=== PATIENT | female | born 1985 | race Caucasian/White ===

== ENCOUNTER → 2016-06-03 | Outpatient (CLI) | payer MEDICAID | LOC: RAD 13:21 | PROVIDERS: ATTEND Family Medicine | DX: O26.843 Uterine size-date discrepancy, third trimester (principal); Z3A.29 29 weeks gestation of pregnancy | CPT/HCPCS: 76805 ==

== ENCOUNTER → 2016-07-18 | Outpatient (CLI) | payer MEDICAID ==
--- NOTE | 2016-07-18 16:13 | Diagnostic Imaging Report ---
INDICATION: Polyhydramnios. EXAMINATION: Multiple real-time grayscale images were obtained through the . AVAILABLE COMPARISONS: 06/03/2016. FINDINGS: A single fetus is identified in cephalic presentation. Placenta is anterior with no previa. anatomic survey was negative. biometrics: BPD: 8.96 cm, 36 weeks 2 days Head circumference: 32 cm, 36 weeks 1 day Abdominal circumference: 32 cm, 6 weeks 1 day Femur length: 6.56 cm, 3 weeks 6 days. Estimated weight: 2694 g +/- 393 g. CHANEL: 32 IMPRESSION: 1. Single live intrauterine with an average ultrasound age of 35 weeks 5 days +/- 3 weeks. size is approximately equal to dates. Interval growth since 06/03/2016 is within normal limits. 2. Amniotic fluid index is greater than the 97th percentile for a gestational age of 35 weeks. Dictated by: Dictated on workstation # [id number]
== END ==
LOC: RAD 14:04
PROVIDERS: ATTEND Family Medicine
DX: O40.3XX0 Polyhydramnios, third trimester, not applicable or unspecified (principal); Z3A.35 35 weeks gestation of pregnancy
CPT/HCPCS: 76805

== ENCOUNTER 2016-08-11 08:32 | Inpatient (IN) | payer MEDICAID ==
[~2016-08-11] VITALS: Ht 157.5 cm; Wt 69.0 kg
[2016-08-11] VITALS (22 sets, daily range): BP systolic 79–111; BP diastolic 44–68
[2016-08-11] MEDS ORDERED: OXYTOCIN INJ 20 UNIT in NS 1000ml 1,000 ML IV PRN (08:58)
[2016-08-11] MEDS ORDERED: CALCIUM CARBONATE CHEWABLE 300 MG (TUMS) TABLET PO PRN (09:00)
[2016-08-11] MEDS ORDERED: SODIUM CHLORIDE FLUSH 3 ML SYR IV SCH (09:35)
[2016-08-11] MEDS ORDERED: PREN1TAB79 PO (09:35)
[2016-08-11 09:42] LABS: MEAN CORPUSCULAR HEMOGLOBIN 31.1 PG (26.0-34.0); MEAN CORPUSCULAR HGB CONC 33.5 g/dL (31.0-37.0); MEAN PLATELET VOLUME 12.3 FL (6.0-9.5); WHITE BLOOD COUNT 11.44 10^3uL (4.0-11.0)
[2016-08-11] MEDS ORDERED: FLC1T PO (09:45)
[2016-08-11] MEDS ORDERED: FERR325C PO (09:45)
[2016-08-11] MEDS ORDERED: OXYTOCIN INJ 20 UNIT in NS 1000ml 1,000 ML SCH (11:35)
[2016-08-11] MEDS ORDERED: OXYTOCIN INJ 20 UNIT in NS 1000ml 1,000 ML IV SCH (12:14)
--- NOTE | 2016-08-11 13:05 | History and Physical (E) ---
History & Physical (OB) Subjective: CC: induction 31 year old at 39 0/7 WGA by LMP confirmed with 1st trimester US presents for induction secondary to polyhydramnios. She is having sporadic contractions, good FM, no LOF and no VB. has been complicated by smoking, chlamydia in the 1st trimester, anemia, and polyhydramnios. She wants a tubal ligation. [facility]: [facility] Hx: x4, EAB x2 PMHx: latex allergy PSHx: FOB Yinka Chen. Unemployed. Smokes 1 ppd, no EtOH or ILD. Allergies: Coded Allergies: latex (Verified Adverse Reaction, Unknown, 08/11/16) Home Medications: Reported Medications Folic Acid 1 Mg Tablet1 Mg PO DAILY 08/11/16 Ferrous Sulfate (Iron)325 Mg Capsule.er325 Mg PO DAILY 08/11/16 Vits W-Ca,Fe,Fa(<1MG) ( Vitamins)1 Each Tablet1 Each PO DAILY 08/11/16 Objective: Vital Signs Date Time Temp Pulse Resp B/P Pulse Ox O2 Delivery O2 Flow Rate FiO2 08/11/16 11:10 70 105/55 08/11/16 09:00 97.8 20 General: Alert and oriented, NAD Chest: CTA Abdomen: Gravid Cardiovasular: RRR, No murmur Extremities: No edema FHT's: 130s, Cat I Cvx: [place]: Q5-10min Screenings: Blood type: O+, Rubella Imm, RPR non-reactive, HBV neg, HIV neg, GBS neg. Problems/Plans: (1) 39 weeks gestation of Assessment & Plan: Plan induction today due to polyhydramnios with AROM. AROM performed with clear fluid returned. Will start pitocin if no good contraction pattern in an hour or so. (2) Polyhydramnios (3) Tobacco use during (4) Latex allergy (5) Request for sterilization Assessment & Plan: Plan tubal ligation. Consent has been signed 05/27. Additional Copies to: End of Report . ДМИТРИЙ MEHTA MD August 11, 2016 09:32
--- NOTE | 2016-08-11 13:07 | Progress Note (E) ---
Progress Note Pitocin at 3, contractions q1-3 min. Cvx 4/80/-2. Patient requesting epidural. Proceed with current management. ДМИТРИЙ LIMON MD August 11, 2016 13:07
[2016-08-11] MEDS ORDERED: ROPIVACAINE 1% 10 MG/ML (NAROPIN) 20 ML AMPUL ONE (13:48)
--- NOTE | 2016-08-11 17:10 | Progress Note (E) ---
Progress Note Epidural placed, pt experience low BPs to the 80s with FHT to the 90s, so it was stopped and slowly restarted. BP is back to baseline, and she is feeling better. FHT 120s until recently, now 90-110s with good variability and no decels. Cvx ant lip/90/+1 Ctx 2-3min. Pit is off. Cont monitoring, hopeful delivery soon. Planning PPTL in the AM. ДМИТРИЙ LIMON MD August 11, 2016 17:09
[2016-08-11] MEDS ORDERED: HYDROcodone/APAP 5 MG/325 MG (NORCO) TAB PO PRN (18:05)
[2016-08-11] MEDS ORDERED: LANOLIN OINTMENT 28 GM TUBE TOP PRN (18:05)
[2016-08-11 18:22] LABS: BILIRUBIN,URINE Negative (Negative); CLARITY,URINE Clear; COLOR,URINE Yellow; GLUCOSE, URINE (UA) Negative (Negative); LEUKOCYTE ESTERASE ,URINE Negative (Negative); UROBILINOGEN,URINE 0.2 mg/dL (0.2-1.0)
[2016-08-11 18:39] LABS: RBC,URINE 20-50 /HPF; URINE CENTRIFUGED VOLUME 12 mL
[2016-08-11] MEDS: IBUPROFEN 600 MG (MOTRIN) TAB PO PRN (20:17)
[2016-08-11] MEDS ORDERED: DOCUSATE SODIUM 100 MG (COLACE) CAP PO SCH (21:00)
[2016-08-12 00:49] VITALS: BP 88/55
[2016-08-12] MEDS: IBUPROFEN 600 MG (MOTRIN) TAB PO PRN ×3 (01:19→18:29)
[2016-08-12] MEDS ORDERED: SODIUM CHLORIDE FLUSH 3 ML SYR ONE (05:46)
[2016-08-12] MEDS ORDERED: SODIUM CHLORIDE FLUSH 10 ML ONE (05:52)
[2016-08-12] MEDS ORDERED: LIDOCAINE PF 1% (XYLOCAINE) 2 ML VIAL INJ ONE ×2 (05:52→08:10)
[2016-08-12 06:02] LABS: MEAN CORPUSCULAR HGB CONC 33.7 g/dL (31.0-37.0); MEAN PLATELET VOLUME 12.2 FL (6.0-9.5); WHITE BLOOD COUNT 14.49 10^3uL (4.0-11.0)
[2016-08-12 06:05] LABS: MEAN CORPUSCULAR HEMOGLOBIN 31.4 PG (26.0-34.0)
[2016-08-12] MEDS ORDERED: BUPIVACAINE/EPINEPHRINE 0.5%-1:200,000 (MARCAINE) 30 ML VIAL INJ ONE (06:12)
[2016-08-12] MEDS ORDERED: MIDAZOLAM 2 MG/2 ML (VERSED) VIAL ONE (07:02)
[2016-08-12] MEDS ORDERED: ePHEDrine SULFATE 50 MG/ML 1 ML AMP ONE (07:08)
[2016-08-12] MEDS ORDERED: ceFAZolin 1000 MG (ANCEF) VIAL ONE (07:16)
[2016-08-12] MEDS ORDERED: WATER (STERILE) FOR INJECTION 20 ML ONE (07:16)
--- NOTE | 2016-08-12 07:53 | Vaginal Delivery Summary (E) ---
Vaginal Delivery Summary At 17:40 on 08/11/16 this 31 year old G7 now P5 spontaneously delivered a viable male at 39 0/7 weeks gestation. The patient presented for care at 8 weeks and ultrasound at that time confirmed dates. This complications: Chlamydia in 1st trimester, Smoker, Anemia, Polyhydramnios Maternal labs: Blood type: O Positive, Rubella Immune, RPR non-reactive, HBV Negative, HIV Negative , GBS Negative. Tdap booster received on 05/2016. She presented for induction secondary to polyhydramnios. At presentation, she was 2.5 cm dilated. At 10:08, AROM was performed by Dr Mehta with Clear fluid returned. Epidural was placed at 1400, with maternal BP drop, so was stopped and restarted more slowly. It the provided good pain relief with the exception of a hot spot on the left lower corner. At 1720, she was complete. She pushed for approximately 10 minutes. The head presented occiput anterior and delivered easily, followed by the anterior shoulder. There was a nuchal cord that was not reduced. The posterior shoulder and the body followed in a controlled fashion and baby was placed on mom's abdomen. The cord was allowed to stop pulsing and then clamped x2 by me and cut by sister of the baby. The placenta then delivered spontaneously and intact, with 3 vessel cord noted. The pitocin bag was run in. There were no lacerations. Estimated blood loss 50 ml. weight: 7 pounds, 5 ounces, 3330 grams. Apgars: 9 at 1 minute, 9 at 5 minutes, and 9 at 10 minutes. Both mom and baby are stable at this time. Plan to proceed with tubal ligation tomorrow morning at 0700. ДМИТРИЙ MEHTA MD August 11, 2016 18:00
--- NOTE | 2016-08-12 08:00 | Operative Report (E FT) ---
Post Operative Note Post Operative Note Operative Note Date of Operation: 08/12/16 Pre-operative Diagnosis: 1. Desire for permanent sterilization 2. Grand multipara 3. Smoker Post Operative Diagnosis: Same Operative Procedure: bilateral tubal ligation Surgeon: Anish Mehta MD Anesthesia: Spinal epidural Findings: Normal uterus, tubes and ovaries Pertinent Preoperative History: Patient delivered a viable male infant yesterday. She does not desire any more children and wants permanent sterilization. The risks and benefits were reviewed , and Medicaid consent signed 04/2016. Operation in Detail: Patient's labor epidural was converted to spinal and brought up in the preoperative room. She was then moved to the operating room and prepped and draped in the usual sterile fashion. Timeout was performed. 20ml of 0.5% Marcaine was instilled along the intended incision site. A curvilinear incision was made below the umbilicus. The incision was taken down to fascia with electrocautery. The abdomen was entered bluntly. The left tube was visualized and elevated with Rian clamp. It was followed to the fimbriae. It was then ligated with 0 Chromic, transected with suture scissors, and then the ends cauterized. It was submitted to pathology. The same was done with the right tube. The fascia was then closed with a running non-locking suture of 0-Vicryl. Count was performed and incorrect, so the suture was removed, and a sponge was removed. Counts were then correct. The fascia was reclosed with 0-Vicryl. The subcutaneous tissue was closed with a running, non-locking suture of 2-0 Vicryl. The skin was then reapproximated with a subcutaneous suture of 4-0 Monocryl. Repeat count was correct. The incision was then dressed with mastisol , steristrip, and bandage. Patient was returned to the postoperative room in a stable condition. ДМИТРИЙ MEHTA MD August 12, 2016 08:00
--- NOTE | 2016-08-12 08:03 | Progress Note (E) ---
Post- Progress Note Subjective: Doing well. Was ambulating and voiding prior to epidural being readministered. Tolerated full diet last night, has been NPO since MN. Bottlefeeding. Objective: Vital Signs Date Time Temp Pulse Resp B/P Pulse Ox O2 Delivery O2 Flow Rate FiO2 08/12/16 00:49 98.0 74 18 88/55 Room air 85 I & O 08/11/16 08/12/16 19:00 07:00 Intake Total 1000 ml Output Total 800 ml Balance 200 ml Laboratory Tests 08/11/16 09:15: Hematocrit 33.10, Hemoglobin 11.1, Mean Corpuscular Hemoglobin 31.1, Mean Corpuscular Hemoglobin Concent 33.5, Mean Corpuscular Volume 93, Mean Platelet Volume 12.3, Platelet Count 161, Red Blood Count 3.57, Red Cell Distribution Width 13.2, White Blood Count 11.44 08/11/16 14:30: Urine Bacteria None seen, Urine Bilirubin Negative, Urine Blood 2+, Urine Clarity Clear, Urine Collection Type Clean catch, Urine Color Yellow, Urine Glucose (UA) Negative, Urine Ketones 3+, Urine Leukocyte Esterase Negative, Urine Microscopic RBC 20-50, Urine Nitrite Negative, Urine Protein Trace, Urine Specific [place] 1.015, Urine Squamous Epithelial Cells 5-10, Urine Urobilinogen 0.2, Urine WBC 0-2, Urine pH 7.0, Volume Urine Centrifuged 12 ml 08/12/16 05:45: Hematocrit 28.80, Hemoglobin 9.7, Mean Corpuscular Hemoglobin 31.4, Mean Corpuscular Hemoglobin Concent 33.7, Mean Corpuscular Volume 93, Mean Platelet Volume 12.2, Platelet Count 148, Red Blood Count 3.09, Red Cell Distribution Width 13.0, White Blood Count 14.49 Blood type: O Positive, Current Medications Ibuprofen 600 mg Q6H PRN PO Last administered on 08/11/16 20:17; Admin Dose 600 MG; Start 08/11/16 at 18:05 Docusate Sodium 100 mg HS PO Last administered on 08/11/16 21:00; Admin Dose 100 MG; Start 08/11/16 at 21:00 Acetaminophen/ Hydrocodone Bitart 1-2 TABS Q4H PRN PO; Start 08/11/16 at 18:05 General: Alert and oriented, NAD Abdomen: Soft, non-distended, fundus firm Extremities: No edema Cardiovascular: RRR, No murmur Lungs: CTAB Problems/Plans: (1) (spontaneous vaginal delivery) Assessment & Plan: Routine cares. Plan discharge tomorrow. (2) Tobacco use during (3) Latex allergy (4) Request for sterilization Assessment & Plan: Tubal done this morning. ДМИТРИЙ LIMON MD August 12, 2016 08:03
[2016-08-12] MEDS ORDERED: SODIUM CHLORIDE FLUSH 10 ML SYR IV PRN (08:10)
[2016-08-12 08:13] LABS: BILIRUBIN,URINE Negative (Negative); CLARITY,URINE Slightly Cloudy; COLOR,URINE Yellow; GLUCOSE, URINE (UA) Negative (Negative); LEUKOCYTE ESTERASE ,URINE Negative (Negative); PH,URINE 5.5 (5.0 - 8.0); UROBILINOGEN,URINE 0.2 mg/dL (0.2-1.0)
[2016-08-12 08:15] LABS: URINE CENTRIFUGED VOLUME 10 mL
[2016-08-12 08:21] LABS: AMORPHOUS SEDIMENT,UR 1+ /HPF; RBC,URINE 20-50 /HPF
[2016-08-12] MEDS ORDERED: DOCU100C8 PO (15:49)
[2016-08-12] MEDS ORDERED: IBUP-1772 PO (15:49)
--- NOTE | 2016-08-12 15:50 | Discharge Instructions (E) ---
Discharge Instructions Instructions Continue stool softener (docusate) until regular, soft BMs. Do not lift greater than 10 pounds for 2 weeks. Do not submerge incision until healed. ДМИТРИЙ LIMON MD August 12, 2016 15:50
--- NOTE | 2016-08-12 16:39 | Discharge Summary (E) ---
Discharge Summary (E) Admit Date/Time August 11, 2016 at 08:55 Discharge Date/Time August 12, 2016 at 1700 Admitting Provider Miriam Mehta MD Primary Care Provider Juan Conley MD Attending Provider Miriam Mehta MD Consulting Provider Procedures tubal ligation Admission Diagnosis Problems: Medical Problems: (1) 39 weeks gestation of (2) Latex allergy (3) Polyhydramnios (4) Request for sterilization Social History Problems: (1) Tobacco use during History and Present Illness See History and Physical for complete details. Hospital Course and Treatment Patient did well with vaginal delivery with no complications. We proceeded the next morning with tubal ligation. She tolerated well with no complications and requested discharge this evening. Discharge Physicial Exam General A&O, NAD Abdomen Soft, non-distended, fundus firm Extremities No edema [employer] c/d/i Laboratory/Radiology Data Laboratory Results Past 5 Days 08/11/16 09:15: Hematocrit 33.10L, Hemoglobin 11.1L, Mean Corpuscular Hemoglobin 31.1, Mean Corpuscular Hemoglobin Concent 33.5, Mean Corpuscular Volume 93, Mean Platelet Volume 12.3H, Platelet Count 161, Red Blood Count 3.57L, Red Cell Distribution Width 13.2, White Blood Count 11.44H 08/11/16 14:30: Urine Bacteria None seen, Urine Bilirubin Negative, Urine Blood 2+H, Urine Clarity Clear, Urine Collection Type Clean catch, Urine Color Yellow, Urine Glucose (UA) Negative, Urine Ketones 3+H, Urine Leukocyte Esterase Negative, Urine Microscopic RBC 20-50, Urine Nitrite Negative, Urine Protein TraceH, Urine Specific [place] 1.015, Urine Squamous Epithelial Cells 5-10, Urine Urobilinogen 0.2, Urine WBC 0-2, Urine pH 7.0, Volume Urine Centrifuged 12 ml 08/12/16 05:45: Hematocrit 28.80L, Hemoglobin 9.7L, Mean Corpuscular Hemoglobin 31.4, Mean Corpuscular Hemoglobin Concent 33.7, Mean Corpuscular Volume 93, Mean Platelet Volume 12.2H, Platelet Count 148L, Red Blood Count 3.09L, Red Cell Distribution Width 13.0, White Blood Count 14.49H 08/12/16 06:45: Urine Bacteria Rare, Urine Bilirubin Negative, Urine Blood 3+H, Urine Clarity Slightly cloudy, Urine Collection Type Catheter, Urine Color Yellow, Urine Glucose (UA) Negative, Urine Ketones Negative, Urine Leukocyte Esterase Negative , Urine Microscopic RBC 20-50, Urine Nitrite Negative, Urine Protein TraceH, Urine Specific [place] 1.020, Urine Squamous Epithelial Cells 2-5, Urine Urobilinogen 0.2, Urine WBC 2-5, Urine pH 5.5, Volume Urine Centrifuged 10 ml, Urine Amorphous Sediment 1+H, Urine Mucus Rare Discharge Disposition To home Instructions Continue stool softener (docusate) until regular, soft BMs. Do not lift greater than 10 pounds for 2 weeks. Do not submerge incision until healed. Discharge Diet: Regular Discharge Medications New Medications: Docusate Sodium (Docusate Sodium) 100 Mg Capsule 100 MG PO HS PRN CONSTIPATION #20 CAP Ibuprofen (Ibuprofen) 600 Mg Tablet 600 MG PO Q6H PRN PAIN #30 TAB Continued Medications: Ferrous Sulfate (Iron) 325 Mg Capsule.er 325 MG PO DAILY CAP Discontinued Medications: Folic Acid (Folic Acid) 1 Mg Tablet 1 MG PO DAILY TAB Vits W-Ca,Fe,Fa(<1MG) ( Vitamins) 1 Each Tablet 1 EACH PO DAILY TAB Follow up Follow up Referrals: Family Practice - 08/19/16 @ [facility] Family [facility] - 09/22/16 @ [facility] Discharge Diagnosis Problems: Medical Problems: (1) 39 weeks gestation of (2) Latex allergy (3) Polyhydramnios (4) Request for sterilization (5) (spontaneous vaginal delivery) Social History Problems: (1) Tobacco use during Problems: Copies to: End of Report . MIRIAM MEHTA MD August 12, 2016 15:53
--- NOTE | 2016-08-12 16:56 | NUR ---
Post tubal recovery monitored by Elodia Mauro RN: Returned to room 224 at [id number] Temp 97.2, HR 61, RR 20, BP 124/60, O2 Sat 97% 0803 Temp 97.2, HR 60, RR 18, BP 125/69, O2 Sat 98% Talks on phone with mother 0808 Temp 97.5, HR 71, RR 18, BP 123/71, O2 Sat 98% 0823 Temp 97.7, HR 68, RR 18, BP 130/63, O2 Sat 98% Able to move feet and legs a bit 0838 Temp 97.5, HR 65, RR 18, BP 114/61, O2 Sat 96% Tries to feed baby, but baby not interested 0938 Temp 98.0, HR 73, RR 18, BP 106/57, O2 Sat 97% 1038 Temp 98.6, HR 78, RR 18, BP 110/46, O2 Sat 98% Feeding baby 1138 Temp 98.8, HR 66, RR 20, BP 96/54, O2 Sat 98% Sears catheter dc'd 1238 Temp 98.3, HR 83, RR 20, BP 95/48, O2 Sat 97%
--- NOTE | 2016-08-12 18:30 | NUR ---
Dismissal instructions provided to mother. Verbalizes understanding of self care.
--- NOTE | 2016-08-12 18:46 | NUR ---
Dismissed to home ambulatory from dept. Accompanied by family and nurse.
== END 2016-08-12 18:45 | disposition home or self-care (01) | DRG 767 ==
LOC: OBGOP 08:32 → OB 08:55
PROVIDERS: ADMIT Family Medicine; ATTEND Family Medicine
PROC: 10907ZC Drainage of Amniotic Fluid, Therapeutic from Products of Conception, Via Natural or Artificial Opening (ICD-10-PCS; principal; 2016-08-11)
PROC: 10E0XZZ Delivery of Products of Conception, External Approach (ICD-10-PCS; 2016-08-11)
PROC: 0UB70ZZ Excision of Bilateral Fallopian Tubes, Open Approach (ICD-10-PCS; 2016-08-12)
DX: O40.3XX0 Polyhydramnios, third trimester, not applicable or unspecified (principal); Z30.2 Encounter for sterilization; O69.81X0 Labor and delivery complicated by cord around neck, without compression, not applicable or unspecified; O99.334 Smoking (tobacco) complicating childbirth; F17.200 Nicotine dependence, unspecified, uncomplicated; O99.02 Anemia complicating childbirth; D64.9 Anemia, unspecified; Z91.040 Latex allergy status; Z3A.39 39 weeks gestation of pregnancy; Z37.0 Single live birth
CPT/HCPCS: 36415; 81003; 81015; 85027; 86850; 86900; 86901